=== PATIENT | male | born 1955 | race Caucasian/White ===

== ENCOUNTER → 2019-03-01 10:02 | Outpatient (CLI) | payer BC ==
--- NOTE | ~2019-03-01 | EC ---
PATIENT:ROSALINO CANADA DATE OF SERVICE: 03/01/19 SEX: M MEDICAL RECORD: [id number] DATE OF : 55 LOCATION:[facility] AGE OF PATIENT: 63 ADMISSION DATE: 03/01/19 REFERRING PHYSICIAN: INTERPRETING PHYSICIAN: VERNELL STEVENSON MD ECHOCARDIOGRAM REPORT ECHO CHARGES 4 ECHO COMPLETE Date: 03/01/19 CLINICAL DIAGNOSIS: ANGINA/PALPITATIONS/SOB ECHOCARDIOGRAPHIC MEASUREMENTS (adult normal given) AC root (d.<3.7cm) 3.4 cm LV Septum d (<1.2 cm> 1.1 cm Valve Excursion 2.0 cm LV Septum (systole) 1.8 cm Left Atria (s.<4.0cm> 3.4 cm LVPW d(<1.2cm) 1.2 cm RV (d.<2.3cm) 2.1 cm LVPW (sytole) 1.7 cm LV diastole(<5.6CM) 4.8 cm MV E-F(>70mm/sec) cm LV systole 2.7 cm LVOT Diameter 2.1 cm MV exc.(>10mm) cm Est.ejection fraction (50-75%) % DOPPLER: LVIT cm/sec A 66.0 cm/sec E 98.0 cm/sec LA cm/sec RVSP mmHg LVOT 103 cm/sec AOP1/2T m/s Asc. Ao 124 cm/sec RVOT 67.0 cm/sec RA cm/sec PA 87.0 cm/sec AV Gradient Peak 6.1 mmHg AV Mean 3.0 mmHg AV Area 2.7 cm MV Gradient Peak 5.7 mmHg MV Mean 2.1 mmHg MV Area cm COMMENTS: OP - HC Telecommunications Analyst: Violet KIRANOE Towel Cabinet Repairer: 1 Dr. Stevenson TAPE# PACS Pericardial Effusion N DATE OF SERVICE: 03/01/2019 PROCEDURE: Echocardiogram. FINDINGS: 1. Left ventricular chamber size is within normal limits. Left ventricular systolic function is normal. Overall ejection fraction estimated at 55%. 2. Left atrium, right atrium, and right ventricular chamber sizes are within normal limits. 3. Valvular structures have normal structure and motion. ECHOCARDIOGRAM REPORT [id number] ROSALINO CANADA 4. Doppler interrogation reveals mild mitral regurgitation, trace tricuspid regurgitation, no other valvular insufficiency or stenosis. 5. No evidence of pericardial effusion or left ventricular thrombus. TRANSINT:[id number] Voice Confirmation ID: [id number] DOCUMENT ID: [id number] VERNELL STEVENSON MD CC: [id number] DICTATION DATE: 03/07/19 1027 CONSULTING NETWORKING ENGINEER: 03/07/19 1132 DEP CLI 03/01/19 [facility] [address] [id number]
== END | disposition home or self-care (01) ==
LOC: D.HCCARDIO 10:02
PROVIDERS: ATTEND Internal Medicine Cardiovascular Disease
DX: R00.2 Palpitations (principal)

== ENCOUNTER 2019-03-09 08:47 | Outpatient (CLI) | payer BC ==
[~2019-03-09] VITALS: Ht 180.3 cm; Wt 77.3 kg
--- NOTE | ~2019-03-09 | HEMODYNAMI ---
PATIENT:ROSALINO CANADA MEDICAL RECORD: [id number] : 55 LOCATION:[facility] ADMISSION DATE: 03/09/19 Generatedon:03/09/201911:39 Patient name: ROSALINO CANADA Patient #: [id number] SSN: : Date of study: 03/09/2019 Page: Of Hemodynamic Procedure Report Patient Data Patient Demographics Procedure consent was obtained First Name: ROSALINO Gender: Male Last Name: NANCIE : 1955 Patient #: [id number] Age: 63 year(s) Race: Unknown Additional ID: [id number] Contact details Address: [address] [place] [address] State: [place] City: [facility] [place], [place] Zip code: [address] Past Medical History Allergies Allergen Reaction Date Comments Reported Other allergy 03/09/2019 [facility] Admission Admission Data Admission Date: 03/09/2019 Admission Time: 8:47 Weight (lbs.): 169.76 Weight (kg.): 77 Lab Results Lab Result Date: 03/09/2019 Lab Result Time: 0:00 Biochemistry Name Units Result Min Max BUN mg/dl 9 --(*---)-- 7 18 Creatinine mg/dl 0.9 --(-*--)-- 0.6 1.3 CBC Name Units Result Min Max Hematocrit % 43 --(*---)-- 42 54 Hemoglobin g/dl 14.9 --(-*--)-- 13.5 17.5 Procedure Procedure Types Cath Procedure Diagnostic Procedure LHC LH w/Coronaries FFR/IVUS FFR Initial Intra-Coronary IVUS Initial Sedation Charges Moderate Sedation up to 30 minutes PCI Procedure Coronary Stent Coronary Stent Initial Procedure Description Procedure Date Procedure Date: 03/09/2019 Procedure Start Time: 10:40 Procedure End Time: 11:39 Procedure Staff Name Function Merlin Stevenson MD Performing Physician Isabela Sarabia RT Monitor Natalie hSarif RT Scrub Ijeoma Starr RN Nurse Procedure Data Cath Procedure Fluoroscopy Diagnostic fluoroscopy Total fluoroscopy Time: time: 12.1 min 12.1 min Diagnostic fluoroscopy Total fluoroscopy dose: dose: 1224 mGy 1224 mGy Contrast Material Contrast Material Type Amount (ml) Isovue 300 208 Entry Location Entry Primary Successful Side Size Upsize Upsize Entry Closure Reyes ccessful Closure Location (Fr) 1 (Fr) 2 (Fr) Remarks Device Remarks Radial Right 6 Fr Mechanical artery Short Compression Estimated blood loss: 10 ml Diagnostic catheters Device Type Used For End Catheter Placement DIAGNOSTIC [place] 110cm 5 Procedure Fr catheter ([id number]) Procedure Complications No complications Procedure Medications Medication Administration Route Dosage 0.9% NaCl I.V. 100 ml/hr Oxygen etCO2 Nasal cannula 2 l/min Lidocaine 2% added to field 20 Heparin Flush Bag added to field 2 bags (1000units/500ml NS) Radial Cocktail added to field 1 syringe (Verapamil 2mg/Nitro 400mcg/Heparin 1500units) Versed I.V. 2 mg Fentanyl I.V. 50 mcg Heparin Bolus I.V. 4000 units Integrilin (Bolus I.V. 6.8 ml 2mg/ml) Versed I.V. 2 mg Fentanyl I.V. 50 mcg Versed I.V. 2 mg Fentanyl I.V. 50 mcg Fentanyl I.V. 50 mcg Versed I.V. 2 mg Fentanyl I.V. 50 mcg Plavix P.O. 600 mg Hemodynamics Rest HGB: 14.9 (g/dl) Heart Rate: 66 (bpm) Snapshots Pre Cath Intra NCS Post Cath Vital Signs Time Heart Resp SPO2 etCO2 NIBP (mmHg) Rhythm Pain Sedation Rate (ipm) (%) (mmHg) Status Level (bpm) 10:23:49 65 12 100 38.8 145/89(111) NSR 0 (11) 10(A) , No pain 10:28:07 70 18 100 37.3 148/91(110) NSR 0 (11) 10(A) , No pain 10:32:25 80 16 98 41.8 114/80(108) NSR 0 (11) 10(A) , No pain 10:36:33 69 14 97 37.3 120/84(94) NSR 0 (11) 10(A) , No pain 10:40:43 73 17 98 42.5 130/79(105) NSR 0 (11) 10(A) , No pain 10:44:59 78 16 98 41.8 120/74(92) NSR 0 (11) 10(A) , No pain 10:49:09 79 17 98 41.8 118/79(90) NSR 0 (11) 9(A) , No pain 10:53:14 80 18 97 37.3 137/90(113) NSR 0 (11) 9(A) , No pain 10:58:36 86 16 98 33.6 194/117(147) NSR 6 (11) 10(A) , Intense 11:03:08 83 21 98 44.8 183/108(149) NSR 6 (11) 10(A) , Intense 11:07:29 80 17 97 41 153/97(129) NSR 0 (11) 9(A) , No pain 11:11:45 81 17 98 37.3 142/89(105) NSR 0 (11) 9(A) , No pain 11:15:52 83 17 98 34.3 134/87(104) NSR 0 (11) 9(A) , No pain 11:20:04 83 18 97 27.6 134/88(111) NSR 0 (11) 9(A) , No pain 11:24:14 83 19 97 45.5 145/93(119) NSR 6 (11) 10(A) , Intense 11:28:30 88 17 98 38.8 162/92(138) NSR 0 (11) 9(A) , No pain 11:32:40 88 21 98 40.3 150/96(117) NSR 0 (11) 10(A) , No pain 11:36:56 84 26 94 29.8 144/98(129) NSR 0 (11) 9(A) , No pain Medications Time Medication Route Dose Verified Delivered Reason Not es Effectiveness by by 10:28:10 0.9% NaCl I.V. 100 Merlin Ijeoma used for ml/hr Elva Starr import manager 10:28:17 Oxygen etCO2 2 l/min Merlin Goldsteina used for Nasal Elva Starr procedure cannula RN 10:28:22 Lidocaine 2% added 20ml Merlin Boyer for local to vial Elva Stevenson MD anesthetic field 10:28:26 Heparin Flush added 2 bags Merlin Boyer used for Bag to Elva Stevenson MD procedure (1000units/500ml field NS) 10:28:33 Radial Cocktail added 1 Merlin Boyer used for (Verapamil to syringe Elva Stevenson MD procedure 2mg/Nitro field 400mcg/Heparin 1500units) 10:39:04 Versed I.V. 2 mg Merlin Ijeoma for sedation Elva Starr RN 10:39:10 Fentanyl I.V. 50 mcg Merlin Ijeoma for sedation Elva Starr RN 10:44:25 Versed I.V. 2 mg Merlin Ijeoma for sedation Elva Starr RN 10:44:38 Fentanyl I.V. 50 mcg Merlin Ijeoma for sedation Elva Starr RN 10:48:56 Heparin Bolus I.V. 4000 Merlin Ijeoma for ruddy ified units Elva Starr anticoagulation with Dr. TRAE Stevenson 10:49:17 Integrilin I.V. 6.8 ml Merlin Jieoma for was jesus (Bolus 2mg/ml) Elva Starr antiplatelet 3.2mL RN therapy 11:00:47 Versed I.V. 2 mg Merlin Ijeoma for sedation Elva Starr RN 11:00:51 Fentanyl I.V. 50 mcg Merlin Ijeoma for sedation Elva Starr RN 11:05:32 Fentanyl I.V. 50 mcg Merlin Ijeoma for sedation Elva Starr RN 11:26:53 Versed I.V. 2 mg Merlin Ijeoma for sedation Elva Starr RN 11:26:57 Fentanyl I.V. 50 mcg Merlin Ijeoma for sedation Elva Starr RN 11:32:40 Plavix P.O. 600 mg Merlin Ijeoma for Elva Starr antiplatelet RN therapy Procedure Log Time Note 10:06:45 Signed procedure consent form obtained from patient. 10:06:49 Diagnostic Cath status Elective 10:06:49 Time tracking: Regular hours (M-F 7:00 - 5:00) 10:06:53 Plan of Care:Hemodynamics will remain stable., Cardiac rhythm will remain stable., Comfort level will be maintained., Respiratory function will remain adequate., Patient/ family verbilizes understanding of procedure., Procedure tolerated without complication., Recovers from procedure without complications.. 10:06:55 Ijeoma Starr RN sent for patient. Start room use. 10:08:07 Patient Weight : 169.76 lbs 10:12:06 Patient received from Pre/Post Procedure Room to CCL 1 Alert and oriented. Tansferred to table in Supine position. 10:12:07 Warm blankets applied, and misael hugger turned on for patient comfort. 10:12:08 Correct patient and procedure confirmed by team. 10:12:09 ECG and BP/O2 sat monitors applied to patient. 10:22:44 Vital chart was started 10:22:45 Baseline sample Acquired. 10:22:48 Rhythm: sinus rhythm 10:22:50 Full Disclosure recording started 10:23:00 H&P Date Dictated: 02/17/2019 Within 30 days and on chart., H&P Addendum completed by physician on day of procedure. (MUST COMPLETE FOR ALL OUTPATIENTS). 10:23:00 Pre-procedure instructions explained to patient. 10:23:01 Pre-op teaching completed and patient verbalized understanding. 10:23:02 Family in patients room. 10:23:03 Patient NPO since Midnight. 10:23:11 Patient allergic to Other allergyLUNESTA 10:23:14 Is patient on blood thinner?No 10:23:15 Patient diabetic? No. 10:23:18 Previous problem with sedation/anesthesia? No ? 10:23:19 Snore? No 10:23:26 Sleep apnea? No 10:23:30 Deviated septum? No 10:23:40 Opens mouth fully? Yes 10:23:41 Sticks out tongue? Yes 10:23:46 Airway obstruction? Yes COPD 10:23:53 Dentures? Yes OUT 10:23:57 Patient pain scale 0/10 ?. 10:23:59 Modified Adarsh's test Ulnar < 7 seconds 10:24:03 IV patent on arrival in left hand with 0.9% NaCl at [facility]. 10:24:54 Lab Result : BUN 9 mg/dl 10:24:54 Lab Result : Hemoglobin 14.9 g/dl 10:24:54 Lab Result : Creatinine 0.9 mg/dl 10:24:54 Lab Result : Hematocrit 43 % 10:24:57 Lab results completed and on chart. 10:25:00 Right Radial & Right Groin area was prepped with chlora-prep and draped in sterile fashion 10:25:01 Alarms reviewed by R. N. 10:25: Sharps counted by scrub and verified by R.N. 10:28:10 0.9% NaCl 100 ml/hr I.V. was administered by Ijeoma Starr RN; used for procedure; 10:28:17 Oxygen 2 l/min etCO2 Nasal cannula was administered by Ijeoma Starr RN; used for procedure; 10::22 Lidocaine 2% 20ml vial added to field was administered by Merlin Stevenson MD; for local anesthetic; 10:28:26 Heparin Flush Bag (1000units/500ml NS) 2 bags added to field was administered by Merlin Stevenson MD; used for procedure; 10:28:33 Radial Cocktail (Verapamil 2mg/Nitro 400mcg/Heparin 1500units) 1 syringe added to field was administered by Merlin Stevenson MD; used for procedure; 10:29:08 Zero performed for pressure channel P1 10:29:47 Zero performed for pressure channel P1 10:35:02 Zero performed for pressure channel P1 10:37:49 --------ALL STOP TIME OUT------ 10:37:50 Final Timeout: patient, procedure, and site verified with staff and physician. All members of the team are in agreement. 10:37:51 Right Radial & Right Groin site verified by team. 10:37:54 Maximum allowable Isovue 300 dose 300ml. Physician notified. (300ml for normal creatinines. For patients with creatinine of 1.7 or higher multiply weight(kg) x 5 divided by creatinine.) 10:37:58 Fire Safety Assessment: A--An alcohol-based skin anteseptic being used preoperatively., C--Open oxygen or nitrous oxide is being used., D--An ESU, laser, or fiber-optic light is being used. 10:38:01 Physical assessment completed. ASA score P 2 - A patient with mild systemic disease as per Merlin Stevenson MD. 10:38:04 Sedation plan: IV Moderate Sedation Medication:Versed, Fentanyl 10:39:04 Versed 2 mg I.V. was administered by Ijeoma Starr RN; for sedation; 10:39:10 Fentanyl 50 mcg I.V. was administered by Ijeoma Starr RN; for sedation; 10:39:54 Procedure started. 10:40:03 Use device set Radial Dx or PCI 10:40:08 Local anesthetic to right radial artery with Lidocaine 2% by Merlin Stevenson MD.INITIAL ACCESS ONLY 10:40:08 ACIST Syringe (47178) opened to sterile field. 10:40:10 Bag Decanter (2001S) opened to sterile field. 10:40:11 ACIST Hand Control (07618) opened to sterile field. 10:40:11 ACIST Manifold (76382) opened to sterile field. 10:40:12 Tegaderm 4 x 4 (1626W) opened to sterile field. 10:40:15 Medline Cath Pack ([id number]) opened to sterile field. 10:40:16 DIAGNOSTIC WIRE .035 260cm J wire (789180) opened to sterile field. 10:40:16 MBrace Wrist Support ([id number]) opened to sterile field. 10:40:18 SHEATH 6FR Slender (80-2208) opened to sterile field. 10:41:28 A 6 Fr Short sheath was inserted into the Right Radial artery 10:41:36 A DIAGNOSTIC [place] 110cm 5 Fr catheter (057630) was advanced over the wire and used for Procedure. 10:42:27 LV gram done using STEEN 10:42:29 Injector settings: Ml/sec: 5, Volume: 10, 10:42:57 EF : 55 % 10:43:54 LCA angiography performed. 10:44:25 Versed 2 mg I.V. was administered by Ijeoma Starr RN; for sedation; 10:44:28 RCA angiography performed. 10:44:35 Catheter exchanged over wire. 10:44:38 Fentanyl 50 mcg I.V. was administered by Ijeoma Starr RN; for sedation; 10:45:24 GUIDE 6FR AR 1.0 catheter ([id number]) opened to sterile field. 10:45:24 [place] Verrata Plus pressure wire (07626P) opened to sterile field. 10:45:24 INFLATOR Merit BasixCompak (KW0172) opened to sterile field. 10:46:11 6 Fr AR 1 guide catheter was inserted over the wire 10:47:14 FFR/IFR wire advanced. 10:48:15 Wire removed. 10:48:17 Guide catheter removed. 10:48:25 GUIDE 6FR XBLAD 3.5 catheter ([id number]) opened to sterile field. 10:48:56 Heparin Bolus 4000 units I.V. was administered by Ijeoma Starr RN; for anticoagulation; verified with Dr. Stevenson 10:49:10 6 Fr XBLAD 3.5 guide catheter was inserted over the wire 10:49:17 Integrilin (Bolus 2mg/ml) 6.8 ml I.V. was administered by Ijeoma Starr RN; for antiplatelet therapy; wasted 3.2mL 10:49:56 CHOICE PT Extra Support 182cm wire ([id number]) opened to sterile field. 10:50:22 [place] IVUS Catheter (22295C) opened to sterile field. 10:50:35 CHOICE ES 182 wire advanced. 10:51:00 Wire advanced across lesion. 10:51:36 IVUS catheter advanced over wire. 10:52:27 IVUS pass to Circ lesion performed. 10:52:43 IVUS catheter removed over wire. 10:53:44 WIRE PERFORATION AT DISTAL LAD. 10:58:34 Inflate balloon Inflation number: 1 A EUPHORA 2.0 x 20 Balloon ([id number]) was prepped and advanced across the Dist LAD, then inflated to 5 REGINA for 4:49 (min:sec). 11:00:17 WHISPER 300cm guide wire ([id number]) opened to sterile field. 11:00:47 Versed 2 mg I.V. was administered by Ijeoma Starr RN; for sedation; 11:00:51 Fentanyl 50 mcg I.V. was administered by Ijeoma Starr RN; for sedation; 11:01:43 TEACY WITH ECHO PAGED 11:02:44 Inflation number: 2 The EUPHORA 2.0 x 20 Balloon ([id number]) was reinflated across the Dist LAD, to 3 REGINA for 3:42 (min:sec). 11:03:21 Balloon removed over the wire. 11:03:32 WHISPER 300 wire advanced. 11:05:32 Fentanyl 50 mcg I.V. was administered by Ijeoma Starr RN; for sedation; 11:07:[address] 11:09:39 Inflate balloon Inflation number: 3 A EMERGE OTW 1.5 x 20 balloon ([id number]) was prepped and advanced across the Dist LAD, then inflated to 7 REGINA for 5:51 (min:sec). 11:13:22 TEACY ARRIVED 11:14:11 Inflation number: 4 The EMERGE OTW 1.5 x 20 balloon ([id number]) was reinflated across the Dist LAD, to 5 REGINA for 3:39 (min:sec). 11:14:40 Balloon removed over the wire. 11:18:35 Place stent Inflation Number: 1 A COBRA RX 2.5 X 12 Stent was prepped and advanced across the Mid LAD. The stent was deployed at 11 REGINA for 0:00 (min:sec). 11:19:45 Stent catheter was removed intact over wire. 11:22:56 Inflation number: 5 The EMERGE OTW 1.5 x 20 balloon ([id number]) was reinflated across the Dist LAD, to 3 REGINA for 0:53 (min:sec). 11:23:42 WHISPER 300cm guide wire ([id number]) opened to sterile field. 11:24:12 NEW WHISPER 300 ADVANCED 11::53 Versed 2 mg I.V. was administered by Ijeoma Starr RN; for sedation; 11::57 Fentanyl 50 mcg I.V. was administered by Ijeoma Starr RN; for sedation; 11::57 Inflation number: 6 The EMERGE OTW 1.5 x 20 balloon ([id number]) was reinflated across the Dist LAD, to 5 REGINA for 2:35 (min:sec). 11:28:12 Wire removed. 11:28:13 Balloon removed over the wire. 11:29:15 Timer 1 started at 11:16 AM, stopped at 11:29 AM, duration 00:12:55 sec. 11:30:05 Guide catheter removed. 11:30:15 Procedure ended.(Physican Out) 11:31:09 TR BAND Standard ([id number]) opened to sterile field. 11:32:11 Sheath removed intact; hemostasis achieved with Mechanical Compression to the Right Radial artery. :32:16 Fluoroscopy time 12.10 minutes. :32:19 Fluoroscopy dose: 1224 mGy 11:32:19 Flurop Dose total: 1224 11:32:24 Contrast amount:Isovue 300 208ml. 11:32:25 Sharps counted by scrub and verified by R.N. 11:32:40 Plavix 600 mg P.O. was administered by Ijeoma Starr RN; for antiplatelet therapy; 11:35:20 TR band inflated with 10cc of air. 11:35:45 Post-procedure physical assessment completed. ASA score P 2 - A patient with mild systemic disease as per Merlin Stevenson MD. 11:35:54 Post procedure rhythm: sinus rhythm 11:35:57 Estimated blood loss: 10 ml 11:35:58 Post procedure instruction explained to patient.Patient verbalizes understanding. 11:35:58 Patient needs reinforcement of post procedure teaching. 11:38:03 Procedure type changed to Cath procedure, Diagnostic procedure, LHC, LHC w/Coronaries, FFR/IVUS, FFR Initial, Intra-Coronary IVUS Initial, Sedation Charges, Moderate Sedation up to 30 minutes, PCI procedure, Coronary Stent, Coronary Stent Initial 11:38:56 Procedure and supply charges have been captured, reviewed, submitted and are correct. 11:39:00 Procedure Complication : No complications 11:39:02 Vital chart was stopped 11:39:03 See physician's report for complete and final results. 11:39:07 Report given to Pre/Post Procedure Room. 11:39:09 Patient transfered to Pre/Post Procedure Room with Bed. 11:39:17 Procedure ended. 11:39:17 Full Disclosure recording stopped 11:39:20 End room use (Document Last) Intervention Summary Intervention Notes Time ActionType Lesion and Equipment Action# Pressure Duration Attributes Used 10:58:34 Inflate Dist LAD EUPHORA 2.0 1 5 04:49 balloon x 20 Balloon ([id number]) 11:02:44 Reinflate Dist LAD EUPHORA 2.0 2 3 03:42 balloon x 20 Balloon ([id number]) 11:09:39 Inflate Dist LAD EMERGE OTW 3 7 05:51 balloon 1.5 x 20 balloon ([id number]) 11:14:11 Reinflate Dist LAD EMERGE OTW 4 5 03:39 balloon 1.5 x 20 balloon ([id number]) 11:18:35 Place stent Mid LAD COBRA RX 2.5 1 11 00:00 X 12 Stent 11:22:56 Reinflate Dist LAD EMERGE OTW 5 3 00:53 balloon 1.5 x 20 balloon ([id number]) 11:26:57 Reinflate Dist LAD EMERGE OTW 6 5 02:35 balloon 1.5 x 20 balloon ([id number]) Device Usage Item Name Manufacture Quantity Catalog Number [facility] Dino goodwin Minimal Lot# / Charge Number Stock Stock Serial# Code ACIST Syringe Acist 1 10103 054536 700024 319032 20 (59185) Medical Systems Inc Bag Decanter Microtek 1 2001S 074451 68288 141863 5 (2001S) Medical Inc. ACIST Hand Acist 1 30958 840621 077195 916107 5 Control Medical (15988) Systems Inc ACIST Manifold Acist 1 97833 239516 135525 398847 5 (10043) Medical Systems Inc Tegaderm 4 x 4 3M 1 1626W 393926 797979 083967 5 (1626W) Medline Cath Medline 1 [id number] 643825 16578 664218 5 Pack ([id number]) DIAGNOSTIC St Elvis 1 402140 835906 322704 952104 30 WIRE .035 260cm J wire (192819) MBrace Wrist Advanced 1 140-0250-00 208809 92280 677903 5 Support Vascular (052831859) Dynamics SHEATH 6FR Terumo 1 [id number] 403213 935535 390267 5 Slender (80-1060) DIAGNOSTIC Terumo 1 40-1993 901142 437869 625298 5 [place] 110cm 5 Fr catheter (069494) GUIDE 6FR AR Medtronic 1 [id number] 635918 23585 438624 1 1.0 catheter (JD9QB27) [place] 1 50027A 308392 599422170 383419 5 Verrata Plus pressure wire (02465J) INFLATOR Merit Merit 1 HS8878 539777 563835 500325 15 Basix[place] [facility] HospitalStylit[facility] Medical (OA0918) GUIDE 6FR Cardinal 1 [id number] 909564 280904 820319 10 XBLAD 3.5 Health catheter (66854332) CHOICE PT [place] 1 [id number] 189390 050225 205035 5 Extra Support Scientific 182cm wire (1279567G5) [place] 1 91035Y 665576 078054 536000 [address] [place] IVUS Catheter (94954Q) EUPHORA 2.0 x Medtronic 1 [id number] 861347 890154 338033 5 [id number] 20 Balloon ([id number]) WHISPER 300cm Franks 2 [id number] 557694 932662 990716 5 guide wire Vascular (1099458HI) EMERGE OTW 1.5 [place] 1 [id number] 239652 951748 098040 5 60402754 x 20 balloon Scientific ([id number]) COBRA RX 2.5 X Celonova 1 198-48-53753 516661 527278923 350419 997 7 0634650656 12 stent Biosciences (847-60-95907) TR BAND Terumo 1 [id number] 508046 590106 477218 40 Standard ([id number]) Signature Audit [place] Stage Time Signature Unsigned Intra-Procedure 03/09/2019 Isabela Sarabia 11:39:43 AM RT(R) Signatures Monitor : Isabela Sarabia Signature : RT Date : Time : [place] [id number] [place] [address]
[2019-03-09] MEDS ORDERED: PROTONIX40 MG PO (09:21)
[2019-03-09] MEDS ORDERED: TRAZODONE HCL150 MG PO (09:21)
[2019-03-09] MEDS ORDERED: PAXIL30 MG PO (09:21)
[2019-03-09] MEDS ORDERED: BUPROPION HCL75 MG PO (09:21)
[2019-03-09] MEDS ORDERED: TOPROL XL25 MG PO (09:21)
[2019-03-09 09:36] VITALS: BP 133/77; Ht 180.3 cm; Wt 77.3 kg
[2019-03-09 09:40] LABS: BASOPHILS 0.6 % (0-2); EOSINOPHILS 3.3 % (0-7); HEMOGLOBIN 14.9 g/dL (13.5-17.5); IMMATURE GRANULOCYTES 0.1 % (0-5); LYMPHOCYTES 35.2 % (15-50); MCH 33.2 pg (26.0-34.0); MCHC 34.7 g/dL (31.0-37.0); MCV 95.8 fL (80.0-100.0); MEAN PLATELET VOLUME 9.3 fL (7.4-10.4); MONOCYTES 6.3 % (2-11); NEUTROPHILS 54.5 % (40-80); PLATELET COUNT 275 10x3/uL (130-400); RBC 4.49 10x6/uL (4.20-6.10); RDW 12.5 % (11.5-14.5); WBC 7.8 10x3/uL (4.8-10.8)
[2019-03-09 09:52] LABS: CALC OSMOLALITY 277 mosm/kg (275-300); CALCIUM 8.7 mg/dL (8.5-10.1); CARBON DIOXIDE 25.7 mmol/L (21.0-32.0); CHLORIDE - SERUM 106 mmol/L (98-107); CREATININE - SERUM 0.9 mg/dL (0.6-1.3); GLUCOSE 107 mg/dL (74-106); POTASSIUM - SERUM 4.4 mmol/L (3.5-5.1); SODIUM 140 mmol/L (136-145); UREA NITROGEN 9 mg/dL (7-18); eGFR NON AFRICAN AMERICAN > 90 mL/min (90-120)
[2019-03-09] MEDS ORDERED: PLAVIX75 MG PO (11:41)
--- NOTE | 2019-03-09 12:00 | NUR ---
2L NC, NO RESP DISTRESS. RIGHT WRIST TR BAND CDI, NO BLEEDING OR HEMATOMA NOTED. NO C/O PAIN OR NAUSEA. VSS. CALL LIGHT WITHIN REACH.
--- NOTE | 2019-03-09 12:30 | NUR ---
SIPPING ON WATER WITH NO C/O NAUSEA. RIGHT WRIST TR BAND CDI, NO BLEEDING OR HEMATOMA NOTED. DENIES ANY NEEDS AT THIS TIME. VSS. WILL CONTINUE TO MONITOR.
--- NOTE | 2019-03-09 12:45 | NUR ---
RESTING QUIETLY WITH EYES CLOSED. RIGHT WRIST TR BAND CDI, NO BLEEDING OR HEMATOMA NOTED. DENIES ANY NEEDS. VSS. CALL LIGHT WITHIN REACH.
--- NOTE | 2019-03-09 14:22 | NUR ---
3CC OF AIR REMOVED FROM TR BAND WITH NO BLEEDING NOTED. VSS. WILL CONTINUE TO MONITOR CLOSELY.
--- NOTE | 2019-03-09 14:41 | NUR ---
3CC OF AIR REMOVED FROM TR BAND WITH NO BLEEDING NOTED.
--- NOTE | 2019-03-09 15:00 | NUR ---
LEFT PIV D/C'D WITH CATHETER INTACT, BAND AID TO SITE. 2CC OF AIR REMOVED FROM TR BAND WITH NO BLEEDING NOTED. UP TO BEDSIDE TO GET DRESSED. AMBULATED TO RESTROOM.
--- NOTE | 2019-03-09 15:12 | NUR ---
REMAINING AIR REMOVED FROM TR BAND WITH NO BLEEDING NOTED. DRESSING PLACED TO SITE. DISCHARGE INSTRUCTIONS GIVEN ALONG WITH PLAVIX PRESCRIPTION, VERBALIZED UNDERSTANDING.
--- NOTE | 2019-03-09 15:20 | NUR ---
TAKEN OUT VIA WHEELCHAIR BY CATH SHEET ROCK FINISHER. LEFT FACILITY WITH FAMILY AND ALL PERSONAL BELONGINGS.
--- NOTE | 2019-03-18 11:27 | OP ---
PATIENT NAME: ROSALINO CANADA MEDICAL RECORD: [id number] :55 LOCATION:D.CAT ADMISSION DATE: SURGEON: VERNELL CUMMINS MD DATE OF OPERATION: 03/09/2019 DATE OF SERVICE: 03/09/2019 PROCEDURES: 1. PTCA stent LAD. 2. IFR RCA. 3. Left heart catheterization. 4. Selective coronary angiography. 5. Left ventriculogram. INDICATION: Angina and coronary artery disease. PROCEDURE IN DETAIL: After informed consent was obtained and after a detailed description of the risks, benefits, as well as alternative therapies, the patient elected to proceed with angiogram and angioplasty. The right radial area was prepped and draped in normal sterile fashion. Right radial artery was cannulated via modified Seldinger technique with placement of 6-Barbadian sheath. All catheters exchanged through this sheath. FINDINGS: The left ventriculogram was performed in standard 30-degree STEEN view, reveals good cardiac wall motion throughout all segments. Overall ejection fraction is 65%. SELECTIVE CORONARY ANGIOGRAPHY: 1. Left main showed no significant angiographic disease. 2. Left anterior descending has 80-85% stenosis in the mid vessel. 3. The left circumflex has moderate irregularities, but no flow-limiting stenosis. 4. Right coronary has moderate irregularities, IFR was normal, hence nothing was of hemodynamically significant. We had planned to perform intravascular ultrasound of the left anterior descending; however, with advancement of the intravascular ultrasound catheter, the wire inadvertently advanced as well and there was a wire perf in the very distal LAD. We did prolonged balloon inflations with a 2.0 balloon and a 1.5 balloon, this sealed with wire perf. We stent of the left anterior descending with a 2.5 x 12 mm Cobra stent. Result was 0% residual stenosis. OVERALL IMPRESSION: Successful percutaneous transluminal coronary angioplasty stent of the left anterior descending going from 85% initial stenosis to 0% residual. TRANSINT:[id number] Voice Confirmation ID: [id number] DOCUMENT ID: [id number] OPERATIVE REPORT [id number] ROSALINO CANADA JEFFREY MD at 1127 CC: [id number] DICTATION DATE: 03/09/19 1138 STAFFING OPERATIONS MANAGER: 03/09/19 1301 DEP CLI 03/09/19 [place] [id number] [place] [id number]
--- NOTE | 2019-03-18 11:27 | EC ---
PATIENT:ROSALINO CANADA DATE OF SERVICE: 03/09/19 SEX: M MEDICAL RECORD: [id number] DATE OF : 55 LOCATION:D[facility] AGE OF PATIENT: 63 ADMISSION DATE: 03/09/19 REFERRING PHYSICIAN: INTERPRETING PHYSICIAN: VERNELL STEVENSON MD ECHOCARDIOGRAM REPORT ECHO CHARGES 5 ECHO LIMITED Date: 03/09/19 CLINICAL DIAGNOSIS: S/P PERF ECHOCARDIOGRAPHIC MEASUREMENTS (adult normal given) AC root (d.<3.7cm) 0 cm LV Septum d (<1.2 cm> 0 cm Valve Excursion 0 cm LV Septum (systole) 0 cm Left Atria (s.<4.0cm> 0 cm LVPW d(<1.2cm) 0 cm RV (d.<2.3cm) 0 cm LVPW (sytole) 0 cm LV diastole(<5.6CM) 0 cm MV E-F(>70mm/sec) 0 cm LV systole 0 cm LVOT Diameter 0 cm MV exc.(>10mm) 0 cm Est.ejection fraction (50-75%) 0 % DOPPLER: LVIT 0 cm/sec A 0 cm/sec E 0 cm/sec LA 0 cm/sec RVSP 0 mmHg LVOT 0 cm/sec AOP1/2T 0 m/s Asc. Ao 0 cm/sec RVOT 0 cm/sec RA 0 cm/sec PA 0 cm/sec AV Gradient Peak 0 mmHg AV Mean 0 mmHg AV Area 0 cm MV Gradient Peak 0 mmHg MV Mean 0 mmHg MV Area 0 cm COMMENTS: LIMITED STUDY (2-D ONLY) Early Childhood Associate Teacher: Violet ARANGO Fire Suppression Captain: 1 Dr. Stevenson TAPE# PACS Pericardial Effusion N DATE OF SERVICE: 03/09/2019 Echocardiogram FINDINGS: 1. Left ventricular chamber size is within normal limits. Left ventricular systolic function is normal. Overall ejection fraction estimated at 60%. 2. No evidence of pericardial effusion. TRANSINT:[id number] Voice Confirmation ID: [id number] DOCUMENT ID: [id number] ECHOCARDIOGRAM REPORT [id number] ROSALINO CANADA JEFFREY MD at 1127 CC: [id number] DICTATION DATE: 03/09/19 1558 SLIP COVER CUTTER: 03/10/19 0020 DEP CLI 03/09/19 [facility] [address] [place] [address]
== END 2019-03-09 15:20 | disposition home or self-care (01) ==
LOC: D.CATH 08:47
PROVIDERS: ATTEND Internal Medicine Interventional Cardiology
DX: I25.119 Atherosclerotic heart disease of native coronary artery with unspecified angina pectoris (principal); Z01.812 Encounter for preprocedural laboratory examination